=== PATIENT | male | born 1945 | race Caucasian/White ===

== ENCOUNTER 2022-08-25 23:21 | Emergency (ER) | payer MEDICAID, OTHER ==
[~2022-08-25] VITALS: Ht 195.6 cm; Wt 108.9 kg
[2022-08-25 23:26] VITALS: BP 145/105
--- NOTE | 2022-08-25 23:26 | NUR ---
pt offloaded to [facility]
--- NOTE | 2022-08-26 06:08 | NUR ---
Dr. Cronin examining patient.
--- NOTE | 2022-08-26 07:02 | NUR ---
PT TAKEN TO RADIOLOGY
--- NOTE | 2022-08-26 07:18 | NUR ---
Patient taken to bed 7.
[2022-08-26] MEDS ORDERED: KETOROLAC 30 MG/ML VIAL IM ONE (07:55)
[2022-08-26] MEDS ORDERED: ACETAMINOPHEN EXTRA STRENGTH 500 MG TAB PO ONE (07:55)
[2022-08-26] MEDS ORDERED: ACET-10509 PO (07:57)
[2022-08-26 08:47] VITALS: BP 151/87
--- NOTE | 2022-08-26 08:47 | NUR ---
Patient discharged with v/s stable. Written and verbal after care instructions given. Patient alert, oriented and verbalized understanding of instructions. Ambulatory with steady gait. All questions addressed prior to discharge. ID band removed. Patient advised to follow up with PMD. Rx of Tylenol given. Opportunity to ask questions provided and answered.
== END 2022-08-26 08:47 | disposition home or self-care (01) ==
LOC: MED 23:21
DX: M54.50 Low back pain, unspecified (principal); Z79.899 Other long term (current) drug therapy
CPT/HCPCS: 72100; 96372; 99283; J1885

== ENCOUNTER 2023-12-18 18:19 | Emergency (ER) | payer MEDICAID, OTHER ==
[~2023-12-18] VITALS: Ht 195.6 cm; Wt 108.9 kg
[~2023-12-18 18:19] MED LIST: ACET-10509 PO
[2023-12-18 18:30] VITALS: BP 143/62; PULSE 86; RESP 18; TEMP 98.7; O2SAT 99
[2023-12-18 19:45] LABS: APPEARANCE,URINE CLEAR (CLEAR); BILIRUBIN,URINE NEGATIVE (NEGATIVE); BLOOD, URINE TRACE-I (NEGATIVE); COLOR,URINE YELLOW (YELLOW); LEUKOCYTE ESTERASE ,URINE NEGATIVE (NEGATIVE); NITRITE, URINE NEGATIVE (NEGATIVE); PROTEIN,URINE NEGATIVE (NEGATIVE); UGLUCOSE NEGATIVE (NEGATIVE); UROBILINOGEN,URINE 0.2 EU/dL (0.2 - 1)
[2023-12-18 22:20] VITALS: BP 148/66; PULSE 88; RESP 19; TEMP 98.7; O2SAT 99
== END 2023-12-18 22:20 ==
LOC: MED 18:19
DX: R32 Unspecified urinary incontinence (principal); I10 Essential (primary) hypertension; E78.5 Hyperlipidemia, unspecified; K21.9 Gastro-esophageal reflux disease without esophagitis; F03.90 Unspecified dementia, unspecified severity, without behavioral disturbance, psychotic disturbance, mood disturbance, and anxiety; Z86.73 Personal history of transient ischemic attack (TIA), and cerebral infarction without residual deficits; Z79.899 Other long term (current) drug therapy
CPT/HCPCS: 81003; 99283